=== PATIENT | male | born 1955 | race Caucasian/White ===

== ENCOUNTER 2022-03-20 09:22 | Inpatient (IN) ==
[2022-03-20] MEDS ORDERED: GLUCAGON 1 MG VIAL IM PRN (09:37)
[2022-03-20] MEDS ORDERED: DEXTROSE 10% 250 ML BAG IV PRN (09:46)
[2022-03-20 10:13] LABS: Basophils # 0.1 10*3/uL (0.0-0.2); Basophils % 1.4 % (0.0-0.8); Eosinophils # 0.3 10*3/uL (0.0-0.87); Eosinophils % 3.8 % (0.00-10.9); Hematocrit 45.2 VOL% (42.0-52.0); Hemoglobin 15.5 GM/DL (14.0-18.0); Immature Granulocytes % 1.2 %; Lymphocytes # 2.4 10*3/uL (1.4-4.0); Lymphocytes % 29.2 % (21.2-54.2); Mean Corpuscular HGB Conc 34.3 GM/DL (32-36); Mean Corpuscular Volume 87.6 FL (87-102); Mean Platelet Volume 9.4 FL (9.6-12.0); Monocytes # 0.8 10*3/uL (0.11-0.8); Monocytes % 9.4 % (1.7-12.7); Platelet Count 318 T/CUMM (130-400); Red Blood Count 5.16 MC/CUMM (3.8-5.5); Red Cell Distribution Width 13.2 % (9.3-17.3); White Blood Count 8.4 T/CUMM (4-12)
[2022-03-20 10:40] LABS: Alanine Aminotransferase 45 U/L (16-61); Alkaline Phosphatase 74 U/L (45-117); Aspartate Amino Transferase 15 U/L (0-37); Bilirubin,Total < 0.39 MG/DL (0.20-1.00); Blood Urea Nitrogen 20 MG/DL (7-18); Calcium 9.2 MG/DL (8.5-10.1); Carbon Dioxide 23 MMOL/L (21-32); Chloride 103 MMOL/L (98-107); Glucose 250 MG/DL (74-106); Osmolality,Calculated 276.4 MOS/KG (273-304); Potassium 3.9 MMOL/L (3.5-5.1); Sodium 133 MMOL/L (136-145); Total Protein 7.5 G/DL (6.4-8.2)
[2022-03-20] MEDS ORDERED: MORPHINE 2 MG/1 ML SYRINGE IV PRN (12:17)
[2022-03-20] MEDS ORDERED: ZALEPLON 5 MG CAPSULE PO PRN (12:17)
[2022-03-20] MEDS ORDERED: NITROGLYCERIN SL 0.4 MG TABLET SL PRN (12:17)
[2022-03-20] MEDS: CLORAZEPATE 3.75 MG TABLET PO PRN ×2 (14:28→21:30)
[2022-03-20] MEDS: INSULIN REGULAR 100 UNIT/ML SUBCUT SCH ×3 (14:33→21:26)
[2022-03-20 17:41] LABS: Arterial Base Excess iSTAT -1 MMOL/L (-2.5-2.5); Arterial Bicarbonate iSTAT 24.7 MMOL/L (20-26); Arterial O2 Saturation iSTAT 95 % (95-100); Arterial PCO2 iSTAT 44 MM HG (35-48); Arterial PO2 iSTAT 78 MM HG (80-95); Arterial Total CO2 iSTAT 26 MMO/L (23-27); Arterial pH iSTAT 7.358 (7.35-7.45)
[2022-03-20] MEDS: CHLORHEXIDINE 4% SOLN 118 ML BOTTLE TOP SCH ×2 (17:47→21:26)
[2022-03-20] MEDS: CHLORHEXIDINE 0.12% ORAL RINSE 60 ML BOTTLE SWISH/SPIT SCH (21:25)
[2022-03-20] MEDS: glipiZIDE 10 MG TABLET PO SCH (21:25)
[2022-03-20] MEDS: amLODIPine 5 MG TABLET PO SCH (21:25)
[2022-03-21] MEDS: CHLORHEXIDINE 4% SOLN 118 ML BOTTLE TOP SCH (03:42)
[2022-03-21] MEDS ORDERED: PAPAVERINE 60 MG/2 ML VIAL ONE (04:15)
[2022-03-21] MEDS ORDERED: VANCOMYCIN 500 MG VIAL ONE (04:16)
[2022-03-21] MEDS ORDERED: VANCOMYCIN 1,000 MG VIAL ONE (04:16)
[2022-03-21] MEDS ORDERED: CEFUROXIME INJ 1,500 MG in SODIUM CHLORIDE 0.9% 100 ML IV ONE (05:00)
[2022-03-21] MEDS ORDERED: DIAZEPAM 5 MG TABLET PO ONE (05:30)
[2022-03-21] MEDS ORDERED: FAMOTIDINE 20 MG TABLET PO ONE (05:30)
[2022-03-21] MEDS ORDERED: VECURONIUM 10 MG VIAL IV ONE ×4 (05:53→09:05)
[2022-03-21] MEDS ORDERED: fentaNYL 250 MCG/5 ML VIAL ONE ×5 (05:54→06:04)
[2022-03-21] MEDS ORDERED: MIDAZOLAM 10 MG/2 ML VIAL ONE ×4 (05:54→08:41)
[2022-03-21] MEDS ORDERED: SODIUM CHLORIDE 0.9% 250 ML IV ONE (05:58)
[2022-03-21] MEDS ORDERED: LACTATED RINGERS 1,000 ML IV ONE (05:58)
[2022-03-21] MEDS ORDERED: HEPARIN/NACL 0.9% 2 UNITS/ML 1,000 UNIT/500 ML BAG IV ONE (05:58)
[2022-03-21] MEDS ORDERED: SEVOFLURANE 1 UNIT/15 MINUTE INH ONE ×5 (05:58→10:57)
[2022-03-21] MEDS ORDERED: SODIUM CHLORIDE 0.9% 1,000 ML IV ONE ×2 (05:58→10:01)
[2022-03-21] MEDS ORDERED: AMINOCAPROIC ACID 5,000 MG/20 ML VIAL ONE (06:00)
[2022-03-21] MEDS ORDERED: LIDOCAINE 2% 5 ML VIAL ONE ×2 (06:05→10:44)
[2022-03-21 07:36] LABS: ABG Base Excess 0.6 MMOL/L (-2.5-2.5); ABG HCO3 24.9 MMOL/L (20-26); ABG Oxygen Saturation 98.4 % (95-100); ABG PCO2 44.1 MM HG (35-48); ABG TCO2 22.5 MMOL/L (23-27); Glucose Heart Surgery 235 MG/DL (74-106); Hematocrit Heart Surgery 43.8 PERCENT (42-52); Hemoglobin Heart Surgery 14.3 G/DL (14.0-18.0); Ionized Calcium Arterial 1.15 MMOL/L (1.21-1.46); PCO2 Patient Temp Arterial 44.1 MMHG; Patient Temperature 37 CELCIUS; Potassium Heart/CVR 4.2 MMOL/L (3.5-5.1); Sodium Heart/CVR 136 MMOL/L (135-145)
[2022-03-21] MEDS ORDERED: PHENYLEPHRINE 1 MG/10 ML SYRINGE IV ONE (07:40)
[2022-03-21] MEDS ORDERED: MINERAL OIL/PETROLATUM OPH OINT 3.5 GM TUBE ONE (08:26)
[2022-03-21] MEDS ORDERED: CALCIUM CHLORIDE 1,000 MG/10 ML VIAL IV ONE ×2 (08:26→10:21)
[2022-03-21 08:50] LABS: Glucose,Urine (UA) 500 mg/dL (Negative); Ketones,Urine Negative (Negative); Nitrite,Urine Negative (Negative); Protein,Urine Negative (Negative); Urine Appearance Clear (Clear); Urine Color Yellow (Yellow); Urine Specific Gravity > 1.030 (1.001-1.035); Urine pH 5.5 (4.5-8.0)
[2022-03-21 08:51] LABS: Bacteria,Urine Few /HPF (Few); Bilirubin,Urine Negative (Negative); Blood, Urine Negative (Negative); RBC,Urine Rare /HPF (0-4); Urine Urobilinogen 0.2 eU/dL (<2.0)
[2022-03-21] MEDS ORDERED: METOPROLOL TARTRATE 5 MG/5 ML VIAL IV ONE (08:55)
[2022-03-21 09:07] LABS: ABG Base Excess -1.4 MMOL/L (-2.5-2.5); ABG HCO3 23.3 MMOL/L (20-26); ABG Oxygen Saturation 99.4 % (95-100); ABG PCO2 44.2 MM HG (35-48); ABG PH 7.351 (7.35-7.45); ABG TCO2 21.5 MMOL/L (23-27); Glucose Heart Surgery 226 MG/DL (74-106); Hematocrit Heart Surgery 39.6 PERCENT (42-52); Hemoglobin Heart Surgery 12.9 G/DL (14.0-18.0); Ionized Calcium Arterial 1.14 MMOL/L (1.21-1.46); PCO2 Patient Temp Arterial 42.1 MMHG; PH Patient Temp Arterial 7.365; Patient Temperature 36 CELCIUS; Potassium Heart/CVR 4.5 MMOL/L (3.5-5.1); Sodium Heart/CVR 132 MMOL/L (135-145)
[2022-03-21 09:24] LABS: Hematocrit Heart Surgery 29.6 PERCENT (42-52); Hemoglobin Heart Surgery 9.6 G/DL (14.0-18.0); PCO2 Patient Temp Venous 50.3 MM HG; PH Patient Temp Venous 7.328; PO2 Patient Temp Venous 42.4 MM HG; Potassium Heart/CVR 5.3 MMOL/L (3.5-5.1); VBG HCO3 24.1 MEQ/L (24-28); VBG Oxygen Saturation 74.4 %; VBG PCO2 52.8 MMHG (41-51); VBG PH 7.314; VBG PO2 45.5 MMHG (17-40); VBG Total CO2 24.9 MMOL/L
[2022-03-21 09:53] LABS: Hematocrit Heart Surgery 35.6 PERCENT (42-52); Hemoglobin Heart Surgery 11.5 G/DL (14.0-18.0); PCO2 Patient Temp Venous 41.5 MM HG; PH Patient Temp Venous 7.39; Potassium Heart/CVR 5.9 MMOL/L (3.5-5.1); VBG Base Excess 0.1 MEQ/L (0-4); VBG HCO3 24.3 MEQ/L (24-28); VBG Oxygen Saturation 83.5 %; VBG PH 7.348; VBG PO2 52.7 MMHG (17-40); VBG Total CO2 23.7 MMOL/L
[2022-03-21] MEDS ORDERED: PHENYLEPHRINE DRIP 20 MG/250 ML PREMIX IV ONE (10:03)
[2022-03-21] MEDS ORDERED: SODIUM BICARBONATE 50 MEQ/50 ML VIAL IV ONE ×2 (10:10→10:47)
[2022-03-21] MEDS ORDERED: PHENYLEPHRINE DRIP 40 MG/250 ML PREMIX IV ONE (10:11)
[2022-03-21] MEDS ORDERED: NITROPRUSSIDE 50 MG/2 ML VIAL ONE (10:11)
[2022-03-21] MEDS ORDERED: POTASSIUM CHLORIDE RIDER 20 MEQ/100 ML PREMIX IV ONE (10:11)
[2022-03-21] MEDS ORDERED: CALCIUM CHLORIDE 1,000 MG/10 ML SYRINGE IV ONE (10:12)
[2022-03-21] MEDS ORDERED: THROMBIN TOPICAL (RECOMBINANT) 5,000 UNIT VIAL TOP ONE (10:21)
[2022-03-21] MEDS ORDERED: ALBUMIN 5% 12.5 GM/250 ML VIAL IV ONE ×3 (10:25→10:57)
[2022-03-21 10:38] LABS: ABG Base Excess -2.3 MMOL/L (-2.5-2.5); ABG HCO3 22.5 MMOL/L (20-26); ABG Oxygen Saturation 99.1 % (95-100); ABG PCO2 46.8 MM HG (35-48); ABG TCO2 21.5 MMOL/L (23-27); Glucose Heart Surgery 364 MG/DL (74-106); Hematocrit Heart Surgery 37.2 PERCENT (42-52); Hemoglobin Heart Surgery 12.1 G/DL (14.0-18.0); Ionized Calcium Arterial 1.19 MMOL/L (1.21-1.46); PCO2 Patient Temp Arterial 46.8 MMHG; Patient Temperature 37 CELCIUS; Potassium Heart/CVR 5.1 MMOL/L (3.5-5.1); Sodium Heart/CVR 130 MMOL/L (135-145)
[2022-03-21] MEDS ORDERED: ALBUMIN 25% 25 GM/100 ML VIAL IV ONE (10:44)
[2022-03-21] MEDS ORDERED: MAGNESIUM SULFATE 5 GM/10 ML VIAL IV ONE (10:44)
[2022-03-21] MEDS ORDERED: DEXTROSE 5% KCL 20 MEQ 20 MEQ/1,000 ML BAG IV ONE (10:45)
[2022-03-21] MEDS ORDERED: methylPREDNISolone SOD SUC 1,000 MG/8 ML VIAL ONE (10:45)
[2022-03-21] MEDS ORDERED: MANNITOL 12.5 GM/50 ML VIAL IV ONE (10:46)
[2022-03-21] MEDS ORDERED: FUROSEMIDE 20 MG/2 ML VIAL ONE (10:46)
[2022-03-21] MEDS ORDERED: HEPARIN 10,000 UNIT/10 ML VIAL ONE (10:46)
[2022-03-21] MEDS ORDERED: PROTAMINE SULFATE 250 MG/25 ML VIAL IV ONE (10:47)
[2022-03-21] MEDS ORDERED: PROTAMINE SULFATE 50 MG/5 ML VIAL IV ONE (10:47)
[2022-03-21] MEDS ORDERED: SODIUM CHLORIDE 0.45% 1,000 ML IV SCH ×2 (11:18)
[2022-03-21] MEDS ORDERED: VECURONIUM 10 MG VIAL IV PRN ×2 (11:18)
[2022-03-21] MEDS ORDERED: ALBUMIN 5% 12.5 GM/250 ML VIAL IV PRN (11:18)
[2022-03-21] MEDS ORDERED: MIDAZOLAM 2 MG/2 ML VIAL IV PRN (11:18)
[2022-03-21] MEDS ORDERED: INSULIN REGULAR 100 UNIT/ML IV ONE (11:18)
[2022-03-21] MEDS ORDERED: ACETAMINOPHEN 650 MG SUPP RECTAL PRN (11:18)
[2022-03-21] MEDS ORDERED: NITROPRUSSIDE 100 MG in DEXTROSE 5% 250 ML IV PRN (11:18)
[2022-03-21] MEDS ORDERED: MAGNESIUM SULF RIDER 4 GM/100 ML PREMIX IV PRN (11:18)
[2022-03-21] MEDS ORDERED: ONDANSETRON 4 MG/2 ML VIAL IV PRN (11:18)
[2022-03-21] MEDS ORDERED: DEXTROSE 10% 250 ML BAG IV PRN ×2 (11:18)
[2022-03-21] MEDS ORDERED: MORPHINE 10 MG/1 ML VIAL IV PRN (11:18)
[2022-03-21] MEDS ORDERED: POTASSIUM CHLORIDE RIDER 10 MEQ/100 ML PREMIX IV PRN (11:18)
[2022-03-21] MEDS ORDERED: MAGNESIUM SULF RIDER 2 GM/50 ML PREMIX IV PRN (11:18)
[2022-03-21] MEDS ORDERED: CHLORHEXIDINE 4% SOLN 118 ML BOTTLE TOP PRN (11:18)
[2022-03-21] MEDS ORDERED: MIDAZOLAM 10 MG/2 ML VIAL IV PRN (11:18)
[2022-03-21] MEDS ORDERED: PHENYLEPHRINE DRIP 40 MG/250 ML PREMIX IV PRN (11:18)
[2022-03-21] MEDS ORDERED: CALCIUM CHLORIDE 1,000 MG/10 ML SYRINGE IV PRN (11:18)
[2022-03-21] MEDS: LACTATED RINGERS 250 ML IV PRN ×4 (12:05→13:24)
[2022-03-21 12:23] LABS: ABG Base Excess -2.5 MMOL/L (-2.5-2.5); ABG HCO3 22.3 MMOL/L (20-26); ABG Oxygen Saturation 98.2 % (95-100); ABG PCO2 45.1 MM HG (35-48); ABG PH 7.327 (7.35-7.45); ABG TCO2 21.1 MMOL/L (23-27); Glucose Heart Surgery 277 MG/DL (74-106); Hematocrit Heart Surgery 37.6 PERCENT (42-52); Hemoglobin Heart Surgery 12.2 G/DL (14.0-18.0); Potassium Heart/CVR 3.3 MMOL/L (3.5-5.1)
[2022-03-21 12:23] LABS: Basophils % 0.3 % (0.0-0.8); Eosinophils # 0.1 10*3/uL (0.0-0.87); Eosinophils % 0.4 % (0.00-10.9); Hematocrit 35.6 VOL% (42.0-52.0); Immature Granulocytes % 1.3 %; Immature Granulocytes Absolute 0.17 #; Lymphocytes # 1.2 10*3/uL (1.4-4.0); Mean Corpuscular HGB Conc 33.7 GM/DL (32-36); Mean Corpuscular Volume 90.1 FL (87-102); Mean Platelet Volume 9.4 FL (9.6-12.0); Monocytes # 0.8 10*3/uL (0.11-0.8); Monocytes % 5.5 % (1.7-12.7); Neutrophils % 83.5 % (38.7-73.9); Platelet Count 235 T/CUMM (130-400); Red Blood Count 3.95 MC/CUMM (3.8-5.5); Red Cell Distribution Width 13.2 % (9.3-17.3); White Blood Count 13.6 T/CUMM (4-12)
[2022-03-21 12:35] LABS: PT Patient Result 11.4 SECS (10.1-12.1); Partial Thromboplastin Time 29.3 SECS (23.7-32.9)
[2022-03-21 12:41] LABS: CKMB % 4.68 %
[2022-03-21 12:43] LABS: High Sensitive Troponin I* 2069.4 ng/L (0-78)
[2022-03-21] MEDS: POTASSIUM CHLORIDE RIDER 20 MEQ/100 ML PREMIX IV PRN ×4 (12:49→17:22)
[2022-03-21 12:50] LABS: Albumin 3.7 G/DL (3.4-5.0); Bilirubin,Total 0.7 MG/DL (0.20-1.00); Calcium 8.8 MG/DL (8.5-10.1); Osmolality,Calculated 288.5 MOS/KG (273-304); Potassium 3.4 MMOL/L (3.5-5.1); Total Protein 6.4 G/DL (6.4-8.2)
[2022-03-21] MEDS: INSULIN REGULAR DRIP 100 ML IV SCH ×2 (12:59→20:11)
[2022-03-21] MEDS: SODIUM CHLORIDE 0.9% 1,000 ML IV SCH ×2 (13:08→13:09)
[2022-03-21] MEDS: glipiZIDE 10 MG TABLET PO SCH (13:09)
[2022-03-21] MEDS: amLODIPine 5 MG TABLET PO SCH (13:09)
[2022-03-21] MEDS: CHLORHEXIDINE 0.12% ORAL RINSE 60 ML BOTTLE SWISH/SPIT SCH ×2 (13:09→21:21)
[2022-03-21] MEDS: INSULIN REGULAR 100 UNIT/ML SUBCUT SCH (13:10)
[2022-03-21 14:02] LABS: ABG Base Excess -1.1 MMOL/L (-2.5-2.5); ABG HCO3 23.5 MMOL/L (20-26); ABG Oxygen Saturation 97.8 % (95-100); ABG PCO2 47.6 MM HG (35-48); ABG PH 7.333 (7.35-7.45); ABG TCO2 22.4 MMOL/L (23-27); Glucose Heart Surgery 268 MG/DL (74-106); Hematocrit Heart Surgery 38.3 PERCENT (42-52); Hemoglobin Heart Surgery 12.4 G/DL (14.0-18.0); Potassium Heart/CVR 3.8 MMOL/L (3.5-5.1)
[2022-03-21 15:30] LABS: ABG Base Excess -1.9 MMOL/L (-2.5-2.5); ABG HCO3 22.8 MMOL/L (20-26); ABG Oxygen Saturation 95.7 % (95-100); ABG PCO2 52.8 MM HG (35-48); ABG PH 7.291 (7.35-7.45); ABG PO2 93.8 MM HG (80-95); ABG TCO2 22.9 MMOL/L (23-27); Glucose Heart Surgery 262 MG/DL (74-106); Hematocrit Heart Surgery 37.3 PERCENT (42-52); Hemoglobin Heart Surgery 12.1 G/DL (14.0-18.0); Potassium Heart/CVR 4.2 MMOL/L (3.5-5.1)
[2022-03-21] MEDS: INSULIN REGULAR 100 UNIT/ML IV PRN ×3 (16:16→20:11)
[2022-03-21 16:41] LABS: ABG Base Excess -2.2 MMOL/L (-2.5-2.5); ABG HCO3 22.5 MMOL/L (20-26); ABG Oxygen Saturation 95.8 % (95-100); ABG PCO2 50.2 MM HG (35-48); ABG PH 7.302 (7.35-7.45); ABG PO2 91.5 MM HG (80-95); ABG TCO2 22.2 MMOL/L (23-27); Glucose Heart Surgery 268 MG/DL (74-106); Hematocrit Heart Surgery 37.2 PERCENT (42-52); Hemoglobin Heart Surgery 12.1 G/DL (14.0-18.0); Potassium Heart/CVR 3.9 MMOL/L (3.5-5.1)
[2022-03-21 18:11] LABS: ABG Base Excess -1.1 MMOL/L (-2.5-2.5); ABG HCO3 23.4 MMOL/L (20-26); ABG Oxygen Saturation 94.6 % (95-100); ABG PCO2 47.6 MM HG (35-48); ABG PH 7.333 (7.35-7.45); ABG PO2 81.7 MM HG (80-95); ABG TCO2 22.5 MMOL/L (23-27); Glucose Heart Surgery 239 MG/DL (74-106); Hematocrit Heart Surgery 37.1 PERCENT (42-52); Potassium Heart/CVR 4.5 MMOL/L (3.5-5.1)
[2022-03-21] MEDS: CEFUROXIME INJ 1,500 MG in SODIUM CHLORIDE 0.9% 100 ML IV SCH (18:21)
[2022-03-21 20:21] LABS: ABG Base Excess -2.5 MMOL/L (-2.5-2.5); ABG HCO3 22.3 MMOL/L (20-26); ABG Oxygen Saturation 94.2 % (95-100); ABG PCO2 45.5 MM HG (35-48); ABG PH 7.326 (7.35-7.45); ABG PO2 79.3 MM HG (80-95); ABG TCO2 21.2 MMOL/L (23-27); Glucose Heart Surgery 212 MG/DL (74-106); Hematocrit Heart Surgery 37.4 PERCENT (42-52); Hemoglobin Heart Surgery 12.1 G/DL (14.0-18.0); Potassium Heart/CVR 4.1 MMOL/L (3.5-5.1)
[2022-03-21 20:42] LABS: CKMB % 3.4 %
[2022-03-21 20:45] LABS: High Sensitive Troponin I* 3102.9 ng/L (0-78)
[2022-03-21] MEDS ORDERED: MORPHINE 2 MG/1 ML SYRINGE IV PRN (21:45)
[2022-03-22 04:41] LABS: Basophils % 0.1 % (0.0-0.8); Hematocrit 33.2 VOL% (42.0-52.0); Hemoglobin 11.1 GM/DL (14.0-18.0); Immature Granulocytes % 0.8 %; Immature Granulocytes Absolute 0.13 #; Lymphocytes % 5.9 % (21.2-54.2); Mean Corpuscular HGB Conc 33.4 GM/DL (32-36); Mean Corpuscular Volume 90.7 FL (87-102); Mean Platelet Volume 9.4 FL (9.6-12.0); Monocytes # 1.1 10*3/uL (0.11-0.8); Monocytes % 6.3 % (1.7-12.7); Neutrophils % 86.9 % (38.7-73.9); Platelet Count 237 T/CUMM (130-400); Red Blood Count 3.66 MC/CUMM (3.8-5.5); Red Cell Distribution Width 13.8 % (9.3-17.3); White Blood Count 17.1 T/CUMM (4-12)
[2022-03-22 04:47] LABS: ABG HCO3 24.4 MMOL/L (20-26); ABG Oxygen Saturation 94.7 % (95-100); ABG PCO2 41.3 MM HG (35-48); ABG PO2 74.7 MM HG (80-95); ABG TCO2 22.5 MMOL/L (23-27); Glucose Heart Surgery 193 MG/DL (74-106); Hematocrit Heart Surgery 33.3 PERCENT (42-52); Hemoglobin Heart Surgery 10.8 G/DL (14.0-18.0); Potassium Heart/CVR 3.8 MMOL/L (3.5-5.1)
[2022-03-22] MEDS: POTASSIUM CHLORIDE RIDER 20 MEQ/100 ML PREMIX IV PRN (05:05)
[2022-03-22 05:09] LABS: CKMB % 1.88 %
[2022-03-22 05:11] LABS: High Sensitive Troponin I* 2355.8 ng/L (0-78)
[2022-03-22 05:19] LABS: Albumin 3.5 G/DL (3.4-5.0); Bilirubin,Direct 0.12 MG/DL (0.0-0.20); Bilirubin,Total 0.4 MG/DL (0.20-1.00); Calcium 8.4 MG/DL (8.5-10.1); Osmolality,Calculated 284.4 MOS/KG (273-304)
[2022-03-22] MEDS: CEFUROXIME INJ 1,500 MG in SODIUM CHLORIDE 0.9% 100 ML IV SCH ×2 (06:00→21:12)
[2022-03-22] MEDS: oxyCODONE/ACETAMINOPHEN 5-325 MG TABLET PO PRN ×3 (08:15→23:18)
[2022-03-22] MEDS ORDERED: PANTOPRAZOLE 40 MG TABLET PO SCH (09:00)
[2022-03-22] MEDS ORDERED: ACETAMINOPHEN 325 MG TABLET PO PRN (09:17)
[2022-03-22] MEDS ORDERED: MAGNESIUM SULF RIDER 2 GM/50 ML PREMIX IV PRN (09:17)
[2022-03-22] MEDS ORDERED: ONDANSETRON 4 MG/2 ML VIAL IV PRN (09:17)
[2022-03-22] MEDS ORDERED: DEXTROSE 10% 250 ML BAG IV PRN (09:17)
[2022-03-22] MEDS ORDERED: ALUMINUM/MAGNES/SIMETH MAX STR 30 ML UDCUP PO PRN (09:17)
[2022-03-22] MEDS ORDERED: DEXTROSE 50% 25 GM/50 ML VIAL IV PRN (09:17)
[2022-03-22] MEDS ORDERED: POTASSIUM CHLORIDE 20 MEQ TABLET PO PRN (09:17)
[2022-03-22] MEDS ORDERED: MAGNESIUM HYDROXIDE SUSP 30 ML UDCUP PO PRN (09:17)
[2022-03-22] MEDS ORDERED: GLUCAGON 1 MG VIAL IM PRN ×2 (09:17)
[2022-03-22] MEDS ORDERED: MAGNESIUM SULF RIDER 4 GM/100 ML PREMIX IV PRN (09:17)
[2022-03-22] MEDS: MELOXICAM 7.5 MG TABLET PO SCH (09:20)
[2022-03-22] MEDS: FINASTERIDE 5 MG TABLET PO SCH (09:21)
[2022-03-22] MEDS: glipiZIDE 10 MG TABLET PO SCH ×2 (09:21→21:14)
[2022-03-22] MEDS: METOPROLOL TARTRATE 25 MG TABLET PO SCH ×2 (09:21→21:13)
[2022-03-22] MEDS: ASPIRIN EC 81 MG TABLET PO SCH (09:21)
[2022-03-22] MEDS: ASCORBIC ACID 500 MG TABLET PO SCH ×2 (09:21→21:13)
[2022-03-22] MEDS: PARoxetine 20 MG TABLET PO SCH (09:21)
[2022-03-22] MEDS: CHLORHEXIDINE 0.12% ORAL RINSE 60 ML BOTTLE SWISH/SPIT SCH ×3 (09:34→21:14)
[2022-03-22] MEDS: FERROUS SULFATE 325 MG TABLET PO SCH (09:34)
[2022-03-22] MEDS: DOCUSATE SODIUM 100 MG CAPSULE PO SCH (09:35)
[2022-03-22] MEDS: INSULIN REGULAR 100 UNIT/ML SUBCUT SCH ×3 (12:32→21:14)
[2022-03-22 15:02] LABS: High Sensitive Troponin I* 1342.1 ng/L (0-78)
[2022-03-22] MEDS ORDERED: AMIODARONE INJ 150 MG in DEXTROSE 5% 100 ML IV ONE (19:12)
[2022-03-22] MEDS ORDERED: AMIODARONE INJ 450 MG in DEXTROSE 5% 241 ML IV SCH (19:30)
[2022-03-22] MEDS ORDERED: ROSUVASTATIN 20 MG TABLET PO SCH (21:00)
[2022-03-22] MEDS ORDERED: CEFUROXIME INJ 1,500 MG in SODIUM CHLORIDE 0.9% 100 ML IV SCH (21:30)
[2022-03-22] MEDS: ZALEPLON 5 MG CAPSULE PO PRN (21:37)
[2022-03-22] MEDS: ROSUVASTATIN 20 MG TABLET PO SCH (21:43)
[2022-03-23] MEDS: INSULIN REGULAR 100 UNIT/ML SUBCUT SCH ×7 (00:44→22:05)
[2022-03-23] MEDS: AMIODARONE INJ 450 MG in DEXTROSE 5% 241 ML IV SCH ×2 (01:36→08:03)
[2022-03-23] MEDS: oxyCODONE/ACETAMINOPHEN 5-325 MG TABLET PO PRN ×5 (02:54→22:02)
[2022-03-23 04:43] LABS: Basophils % 0.2 % (0.0-0.8); Eosinophils % 0.1 % (0.00-10.9); Hematocrit 31.4 VOL% (42.0-52.0); Hemoglobin 10.2 GM/DL (14.0-18.0); Immature Granulocytes % 1.4 %; Immature Granulocytes Absolute 0.25 #; Lymphocytes # 2.1 10*3/uL (1.4-4.0); Lymphocytes % 11.2 % (21.2-54.2); Mean Corpuscular HGB Conc 32.5 GM/DL (32-36); Mean Corpuscular Volume 92.6 FL (87-102); Mean Platelet Volume 9.7 FL (9.6-12.0); Monocytes # 1.6 10*3/uL (0.11-0.8); Monocytes % 8.8 % (1.7-12.7); Neutrophils % 78.3 % (38.7-73.9); Platelet Count 218 T/CUMM (130-400); Red Blood Count 3.39 MC/CUMM (3.8-5.5); Red Cell Distribution Width 13.8 % (9.3-17.3); White Blood Count 18.3 T/CUMM (4-12)
[2022-03-23 05:05] LABS: Alanine Aminotransferase 45 U/L (16-61); Albumin 3.3 G/DL (3.4-5.0); Alkaline Phosphatase 44 U/L (45-117); Aspartate Amino Transferase 28 U/L (0-37); Bilirubin,Indirect 0.3 MG/DL (0.0-1.0); Bilirubin,Total < 0.39 MG/DL (0.20-1.00); Total Protein 6.2 G/DL (6.4-8.2)
[2022-03-23] MEDS ORDERED: FUROSEMIDE 40 MG/4 ML VIAL IV ONE (06:00)
[2022-03-23 06:53] LABS: Alanine Aminotransferase 48 U/L (16-61); Albumin 3.4 G/DL (3.4-5.0); Alkaline Phosphatase 43 U/L (45-117); Aspartate Amino Transferase 30 U/L (0-37); Bilirubin,Direct < 0.100 MG/DL (0.0-0.20); Bilirubin,Total < 0.39 MG/DL (0.20-1.00); Blood Urea Nitrogen 14 MG/DL (7-18); Calcium 8.9 MG/DL (8.5-10.1); Carbon Dioxide 28 MMOL/L (21-32); Chloride 106 MMOL/L (98-107); Glucose 165 MG/DL (74-106); Osmolality,Calculated 279.7 MOS/KG (273-304); Sodium 138 MMOL/L (136-145); Total Protein 6.3 G/DL (6.4-8.2)
[2022-03-23] MEDS: ASPIRIN EC 81 MG TABLET PO SCH ×2 (08:04→09:21)
[2022-03-23] MEDS: PANTOPRAZOLE 40 MG TABLET PO SCH (08:04)
[2022-03-23] MEDS: DOCUSATE SODIUM 100 MG CAPSULE PO SCH (08:04)
[2022-03-23] MEDS: ASCORBIC ACID 500 MG TABLET PO SCH ×2 (08:04→22:01)
[2022-03-23] MEDS: FERROUS SULFATE 325 MG TABLET PO SCH (08:04)
[2022-03-23] MEDS: CHLORHEXIDINE 0.12% ORAL RINSE 60 ML BOTTLE SWISH/SPIT SCH ×2 (09:21→22:00)
[2022-03-23] MEDS: METOPROLOL TARTRATE 25 MG TABLET PO SCH ×2 (09:21→22:01)
[2022-03-23] MEDS: MELOXICAM 7.5 MG TABLET PO SCH (09:21)
[2022-03-23] MEDS: glipiZIDE 10 MG TABLET PO SCH ×2 (09:21→22:01)
[2022-03-23] MEDS: AMIODARONE 200 MG TABLET PO SCH ×2 (09:21→22:02)
[2022-03-23] MEDS: PARoxetine 20 MG TABLET PO SCH (09:21)
[2022-03-23] MEDS: FINASTERIDE 5 MG TABLET PO SCH (09:21)
[2022-03-23] MEDS ORDERED: DIGOXIN 0.5 MG/2 ML AMP IV ONE (12:54)
[2022-03-23] MEDS: ROSUVASTATIN 20 MG TABLET PO SCH (22:01)
[2022-03-23] MEDS: ZALEPLON 5 MG CAPSULE PO PRN (22:01)
[2022-03-24] MEDS: INSULIN REGULAR 100 UNIT/ML SUBCUT SCH ×6 (00:18→22:08)
[2022-03-24] MEDS: oxyCODONE/ACETAMINOPHEN 5-325 MG TABLET PO PRN (03:14)
[2022-03-24 05:06] LABS: Basophils # 0.1 10*3/uL (0.0-0.2); Basophils % 0.5 % (0.0-0.8); Eosinophils # 0.4 10*3/uL (0.0-0.87); Eosinophils % 2.5 % (0.00-10.9); Hematocrit 32.6 VOL% (42.0-52.0); Immature Granulocytes Absolute 0.28 #; Lymphocytes # 2.7 10*3/uL (1.4-4.0); Lymphocytes % 18.8 % (21.2-54.2); Mean Corpuscular HGB Conc 33.7 GM/DL (32-36); Mean Corpuscular Volume 90.3 FL (87-102); Mean Platelet Volume 9.5 FL (9.6-12.0); Monocytes # 1.5 10*3/uL (0.11-0.8); Monocytes % 10.3 % (1.7-12.7); Neutrophils % 65.9 % (38.7-73.9); Platelet Count 257 T/CUMM (130-400); Red Blood Count 3.61 MC/CUMM (3.8-5.5); Red Cell Distribution Width 13.7 % (9.3-17.3); White Blood Count 14.3 T/CUMM (4-12)
[2022-03-24 05:16] LABS: Alanine Aminotransferase 70 U/L (16-61); Albumin 3.2 G/DL (3.4-5.0); Alkaline Phosphatase 57 U/L (45-117); Aspartate Amino Transferase 38 U/L (0-37); Bilirubin,Indirect 0.3 MG/DL (0.0-1.0); Bilirubin,Total < 0.39 MG/DL (0.20-1.00); Total Protein 6.3 G/DL (6.4-8.2)
[2022-03-24 05:17] LABS: Albumin 3.1 G/DL (3.4-5.0); Bilirubin,Direct 0.11 MG/DL (0.0-0.20); Bilirubin,Total 0.4 MG/DL (0.20-1.00); Osmolality,Calculated 281.5 MOS/KG (273-304); Potassium 3.6 MMOL/L (3.5-5.1); Total Protein 6.1 G/DL (6.4-8.2)
[2022-03-24] MEDS: glipiZIDE 10 MG TABLET PO SCH ×2 (09:08→22:09)
[2022-03-24] MEDS: FINASTERIDE 5 MG TABLET PO SCH (09:08)
[2022-03-24] MEDS: PARoxetine 20 MG TABLET PO SCH (09:09)
[2022-03-24] MEDS: AMIODARONE 200 MG TABLET PO SCH ×2 (09:09→22:11)
[2022-03-24] MEDS: CHLORHEXIDINE 0.12% ORAL RINSE 60 ML BOTTLE SWISH/SPIT SCH ×2 (09:09→22:08)
[2022-03-24] MEDS: DOCUSATE SODIUM 100 MG CAPSULE PO SCH (09:09)
[2022-03-24] MEDS: PANTOPRAZOLE 40 MG TABLET PO SCH (09:09)
[2022-03-24] MEDS: ASPIRIN EC 81 MG TABLET PO SCH (09:09)
[2022-03-24] MEDS: FERROUS SULFATE 325 MG TABLET PO SCH (09:09)
[2022-03-24] MEDS: POLYETHYLENE GLYCOL POWDER 17 GM PACK PO SCH (09:09)
[2022-03-24] MEDS: ASCORBIC ACID 500 MG TABLET PO SCH ×2 (09:09→22:13)
[2022-03-24] MEDS: KETOROLAC 30 MG/1 ML VIAL IV SCH ×3 (09:10→22:09)
[2022-03-24] MEDS: METOPROLOL TARTRATE 25 MG TABLET PO SCH ×2 (09:13→22:10)
[2022-03-24] MEDS: LOSARTAN 25 MG TABLET PO SCH ×2 (11:01→22:11)
[2022-03-24] MEDS: ZALEPLON 5 MG CAPSULE PO PRN (22:07)
[2022-03-24] MEDS: ROSUVASTATIN 20 MG TABLET PO SCH (22:10)
[2022-03-25] MEDS: INSULIN REGULAR 100 UNIT/ML SUBCUT SCH ×4 (00:01→11:58)
[2022-03-25 04:46] LABS: Basophils # 0.1 10*3/uL (0.0-0.2); Basophils % 0.9 % (0.0-0.8); Eosinophils # 0.5 10*3/uL (0.0-0.87); Eosinophils % 4.4 % (0.00-10.9); Hematocrit 32.9 VOL% (42.0-52.0); Hemoglobin 10.9 GM/DL (14.0-18.0); Immature Granulocytes % 4.9 %; Immature Granulocytes Absolute 0.55 #; Lymphocytes # 2.6 10*3/uL (1.4-4.0); Lymphocytes % 23.4 % (21.2-54.2); Mean Corpuscular HGB Conc 33.1 GM/DL (32-36); Mean Corpuscular Volume 90.1 FL (87-102); Mean Platelet Volume 9.3 FL (9.6-12.0); Monocytes % 8.7 % (1.7-12.7); Neutrophils % 57.7 % (38.7-73.9); Platelet Count 268 T/CUMM (130-400); Red Blood Count 3.65 MC/CUMM (3.8-5.5); Red Cell Distribution Width 13.3 % (9.3-17.3); White Blood Count 11.2 T/CUMM (4-12)
[2022-03-25] MEDS: KETOROLAC 30 MG/1 ML VIAL IV SCH ×2 (05:02→09:07)
[2022-03-25 05:08] LABS: Band Neutrophils 1 % (0-10); Eosinophils 2 % (0-10); Lymphocytes 22 % (20-55); Metamyelocytes 1 %; Total Cells Counted 100
[2022-03-25 05:09] LABS: Microcytosis Slight
[2022-03-25 05:10] LABS: Platelet Estimate Normal
[2022-03-25 05:26] LABS: Calcium 8.5 MG/DL (8.5-10.1); Osmolality,Calculated 282.3 MOS/KG (273-304); Potassium 3.7 MMOL/L (3.5-5.1)
[2022-03-25] MEDS: FINASTERIDE 5 MG TABLET PO SCH (08:59)
[2022-03-25] MEDS: ASPIRIN EC 81 MG TABLET PO SCH (08:59)
[2022-03-25] MEDS: METOPROLOL TARTRATE 25 MG TABLET PO SCH (09:00)
[2022-03-25] MEDS: PANTOPRAZOLE 40 MG TABLET PO SCH (09:00)
[2022-03-25] MEDS: LOSARTAN 25 MG TABLET PO SCH (09:00)
[2022-03-25] MEDS: PARoxetine 20 MG TABLET PO SCH (09:00)
[2022-03-25] MEDS ORDERED: LOSARTAN 50 MG TABLET PO SCH (09:00)
[2022-03-25] MEDS: DOCUSATE SODIUM 100 MG CAPSULE PO SCH (09:01)
[2022-03-25] MEDS: AMIODARONE 200 MG TABLET PO SCH (09:02)
[2022-03-25] MEDS: ASCORBIC ACID 500 MG TABLET PO SCH (09:02)
[2022-03-25] MEDS: FERROUS SULFATE 325 MG TABLET PO SCH (09:02)
[2022-03-25] MEDS: CHLORHEXIDINE 0.12% ORAL RINSE 60 ML BOTTLE SWISH/SPIT SCH (09:05)
[2022-03-25] MEDS: POLYETHYLENE GLYCOL POWDER 17 GM PACK PO SCH (09:06)
[2022-03-25] MEDS: glipiZIDE 10 MG TABLET PO SCH (09:13)
[2022-03-25 11:21] VITALS: BP 162/95
[2022-03-25] MEDS: oxyCODONE/ACETAMINOPHEN 5-325 MG TABLET PO PRN (11:57)
== END 2022-03-25 13:45 | disposition home health service (06) | DRG 236 ==
LOC: N.TELES 09:22 → N.CVR 03-21 11:10 → N.TELES 03-22 14:16